=== PATIENT | male | born 1960 ===

== ENCOUNTER 2017-03-03 17:52 | Emergency (ER) | payer OTHER ==
[2017-03-03 17:57] VITALS: BP 180/99; PULSE 86; RESP 18; TEMP 98.3
[2017-03-03] MEDS ORDERED: PROPARACAINE 0.5% OPHTH DROPS 15 ML BTL LEFT EYE STA (18:04)
--- NOTE | 2017-03-03 18:42 | ED ---
General Adult HPI - General Chief complaint: Eye Problems Stated complaint: FB in right eye Time Seen by Provider: 03/03/17 18:04 Source: patient, RN notes reviewed Mode of arrival: ambulatory Limitations: no limitations - History of Present Illness Initial comments: Patient 57-year-old male who presents emergency room today with chief complaint of right eye irritation over the last 2 weeks. Denies any injury or trauma. States it is worse when he is outside and had in the sunlight. States begins the water. States feels like a foreign body sensation. Denies any other complaints or associated symptoms. Denies visual changes. Denies any blurry vision. Denies any eye pain. States is warm and irritation. Patient denies any recent fever, chills, shortness of breath, chest pain, back pain, abdominal pain, nausea or vomiting, numbness or tingling, dysuria or hematuria, constipation or diarrhea, headaches or visual changes, or any other complaints. - Related Data Previous Rx's Medication Instructions Recorded Tobramycin 0.3% Ophth Soln [Tobrex 1 - 2 drop RIGHT EYE QID 7 Days 03/03/17 0.3% Ophth Soln] Allergies Allergy/AdvReac Type Severity Reaction Status Date / Time No Known Allergies Allergy Verified 03/03/17 18:35 Review of Systems ROS Statement: Those systems with pertinent positive or pertinent negative responses have been documented in the HPI. ROS Other: All systems not noted in ROS Statement are negative. Past Medical History Past Medical History: No Reported History History of Any Multi-Drug Resistant Organisms: None Reported Past Surgical History: No Surgical Hx Reported Past Psychological History: No Psychological Hx Reported Smoking Status: Never smoker Past Alcohol Use History: Occasional Past Drug Use History: None Reported General Exam - General Exam Comments Initial Comments: General: The patient is awake and alert, in no distress, and does not appear acutely ill. Eye: Pupils are equal, round and reactive to light, extra-ocular movements are intact. No nystagmus. Redness to the right conjunctiva. Watery discharge. Ears, nose, mouth and throat: There are moist mucous membranes and no oral lesions. Neck: The neck is supple, there is no tenderness or JVD. Cardiovascular: There is a regular rate and rhythm. No murmur, rub or gallop is appreciated. Respiratory: Lungs are clear to auscultation, respirations are non-labored, breath sounds are equal. No wheezes, stridor, rales, or rhonchi. Musculoskeletal: Normal ROM, no tenderness. Strength 5/5. Sensation intact. Pulses equal bilaterally 2+. Neurological: A&O x 3. CN II-XII intact, There are no obvious motor or sensory deficits. Coordination appears grossly intact. Speech is normal. Skin: Skin is warm and dry and no rashes or lesions are noted. Psychiatric: Cooperative, appropriate mood & affect, normal judgment. Limitations: no limitations Course Vital Signs 03/03/17 17:53 Temperature 98.3 F Pulse Rate 86 Respiratory 18 Rate Blood Pressure 180/99 O2 Sat by Pulse 95 Oximetry Medical Decision Making - Medical Decision Making Patient's right eye was checked in the emergency room. Pressure is 12 on the right. Patient's right eye was anesthetized locally with proparacaine which to relieve the symptoms. He was checked with forcing with Wood's lamp showing superficial corneal abrasion over the iris. Patient's eye was also checked with slit lamp exam revealing nor foreign body. Patient be started on antibiotic drops and advised follow-up with ophthalmology in the next 1-2 days. Advised return if any symptoms increase worsen or for any other concerns. Disposition Clinical Impression: Corneal abrasion, right Disposition: HOME SELF-CARE Condition: Good Instructions: Corneal Abrasion (ED) Additional Instructions: Use antibiotic drops as prescribed and follow-up with ward secretary over the next 1-2 days. Please return here to the emergency room if any symptoms increase or worsen or for any other concerns. Prescriptions: Tobramycin 0.3% Ophth Soln [Tobrex 0.3% Ophth Soln] 1 - 2 drop RIGHT EYE QID 7 Days Referrals: None,Stated [Primary Care Provider] - 1-2 days Chasity Whitehead MD [STAFF PHYSICIAN] - 1-2 days Time of Disposition: 18:42
== END 2017-03-03 18:50 | disposition home or self-care (01) ==
LOC: EC 17:52
DX: S05.01XA Injury of conjunctiva and corneal abrasion without foreign body, right eye, initial encounter (principal); X58.XXXA Exposure to other specified factors, initial encounter
CPT/HCPCS: 99283